=== PATIENT | male | born 1960 | race Caucasian/White ===

== ENCOUNTER 2018-03-29 17:00 | Inpatient (IN) | payer BC, OTHER ==
--- NOTE | 2018-03-29 17:45 | ED ---
Chest Pain HPI - General Chief Complaint: Chest Pain Stated Complaint: Chest pain/dizziness Time Seen by Provider: 03/29/18 17:27 Source: patient Mode of arrival: ambulatory Limitations: no limitations - History of Present Illness Initial Comments: 58-year-old male with past medical history of hyperlipidemia, thyroid disorder and sarcoidosis presenting today for chief complaint of dizziness/nausea x 2hours ago. Patient states that 3:45 PM this afternoon he was in his car listening to a conference call when he began to feel dizzy as if the room is spinning and had nausea. Patient took a Tums at this time, he states he then had one episode of emesis. Denies hematemesis. Patient denies any chest pain, upper extremity paresthesias, jaw pain, shoulder pain, headache, muscle weakness , sensation deficits, recent breath, dyspnea on exertion, orthopnea or lower extremity swelling. Patient states that he does have what feels like left lower lung "congestion" he denies this being the pain he states is more discomfort and this has been ongoing for the past week. He states he has had congestion, and postnasal drip-which she attributed to the symptoms. Patient denies fever chills or night sweats abdominal pain, or back pain. Patient denies syncope or presyncope. Remainder of our was negative. Upon arrival patient spell signs within normal limits, patient is well appearing. Nondiaphoretic, no signs of respiratory distress. - Related Data Home Medications Medication Instructions Recorded Confirmed Levothyroxine Sodium [Synthroid] 88 mcg PO DAILY 03/29/18 03/29/18 Omeprazole 20 mg PO MOWEFR 03/29/18 03/29/18 Previous Rx's Medication Instructions Recorded Meclizine [Antivert] 25 mg PO BID #30 tab 03/30/18 Allergies Allergy/AdvReac Type Severity Reaction Status Date / Time amoxicillin AdvReac Nausea & Verified 03/29/18 18:34 Vomiting Review of Systems ROS Statement: Those systems with pertinent positive or pertinent negative responses have been documented in the HPI. ROS Other: All systems not noted in ROS Statement are negative. Constitutional: Denies: fever, chills, night sweats ENT: Denies: ear pain, throat pain Respiratory: Reports: cough (on off). Denies: dyspnea Cardiovascular: Reports: chest pain ("left lower lung congestion"). Denies: palpitations, dyspnea on exertion, orthopnea, edema Gastrointestinal: Reports: nausea, vomiting (x1). Denies: abdominal pain, diarrhea, constipation, hematemesis, melena, hematochezia Genitourinary: Denies: urgency, frequency, hematuria, discharge Musculoskeletal: Denies: back pain Skin: Denies: rash, lesions Neurological: Reports: vertigo. Denies: headache, weakness, numbness, paresthesias, confusion, abnormal gait EKG Findings - EKG Comments: EKG Findings:: Ventricular rate 83 bpm, SD interval 148 ms, QRS duration 84 ms, QT/QTC 370/434 ms, this appears to sinus rhythm with possible 2nd degree type 2 block, noted premature supraventricular complexes. Nonspecific ST abnormalities. No ST elevation. Interpretted by myself and Dr. Gentile Past Medical History Past Medical History: Thyroid Disorder History of Any Multi-Drug Resistant Organisms: None Reported Past Surgical History: No Surgical Hx Reported Past Psychological History: No Psychological Hx Reported Smoking Status: Never smoker Past Alcohol Use History: None Reported Past Drug Use History: None Reported - Past Family History Mother Additional Family Medical History / Comment(s): brain calcification Father Family Medical History: Cancer Additional Family Medical History / Comment(s): from colon cancer 2017 General Exam - General Exam Comments Initial Comments: General: The patient is awake and alert, in no distress, and does not appear acutely ill. Eye: +3 pupils are equal, round and reactive to light, extra-ocular movements are intact. No nystagmus. There is normal conjunctiva bilaterally. No signs of icterus. Ears, nose, mouth and throat: There are moist mucous membranes and no oral lesions. Neck: The neck is supple, there is no tenderness or JVD. No carotid artery bruits Cardiovascular: There is a regular rate and rhythm. No murmur, rub or gallop is appreciated. Respiratory: Lungs are clear to auscultation, respirations are non-labored, breath sounds are equal. No wheezes, stridor, rales, or rhonchi. Gastrointestinal: No noted diaphoresis, jaundice, pallor, protecting postures or squirming. Symmetrical pigmentation of abdomen without signs of inflammation, [scars], or striae. Umbilicus mildline, inverted without swelling. No dilated veins. Abdomen contour obese, no noted abdominal distention. No visible masses. No peristalsis, aortic pulsations, or ventral hernia. Bowel sounds audible in all 4 quadrants, unremarkable. No friction rubs or venous hums. No epigastic, hepatic or abdominal bruits. No tenderness to light or deep palpation. Liver edge, not palpable. Spleen edge, right and left kidney not palpable. Superior bladder margin non-tender. Musculoskeletal: Normal ROM, no tenderness. Strength 5/5. Sensation intact. Pulses equal bilaterally 2+. Neurological: A&O x 3. CN II-XII intact, There are no obvious motor or sensory deficits. Coordination appears grossly intact. Speech is normal. Skin: Skin is warm and dry and no rashes or lesions are noted. No lower extremity edema Psychiatric: Cooperative, appropriate mood & affect, normal judgment. Limitations: no limitations Course Vital Signs 03/29/18 03/29/18 03/29/18 17:09 19:15 21:08 Temperature 97.8 F 97.8 F Pulse Rate 82 85 76 Pulse Rate [ Pulse Oximetery ] Respiratory 20 18 18 Rate Blood Pressure 134/84 121/82 122/76 Blood Pressure [Right Arm] O2 Sat by Pulse 99 97 96 Oximetry 03/29/18 03/30/18 03/30/18 22:51 01:15 04:00 Temperature 97.9 F 97.9 F Pulse Rate 66 70 Pulse Rate [ 73 Pulse Oximetery ] Respiratory 18 18 18 Rate Blood Pressure 114/72 106/69 Blood Pressure 130/85 [Right Arm] O2 Sat by Pulse 97 96 94 L Oximetry 03/30/18 03/30/18 08:00 12:00 Temperature 98.7 F 98.3 F Pulse Rate Pulse Rate [ 87 96 Pulse Oximetery ] Respiratory 18 18 Rate Blood Pressure Blood Pressure 112/75 111/72 [Right Arm] O2 Sat by Pulse 93 L 96 Oximetry Chest Pain MDM - MDM Pt VS stable on arrival, no signs of acute distress. EKG revealed findings concerning for Mobitz 2. Patient placed on telemetry. Laboratory findings unremarkable. Troponin negative. Chest x-ray negative. Will repeat troponin. Pt remains asymptomatic upon multiple reevaluations. Pt admitted for continuous telemetry and serial troponins. Cardiology on consults. Dr. Perry accepted admission. Pt resumed on home medications. Pt dispositioned with Dr. Gentile who agreed with impression and plan. Disposition Clinical Impression: Mobitz type 2 second degree AV block, Dizziness Disposition: ADMITTED IP TO THIS HOSP Condition: Fair Is patient prescribed a controlled substance at d/c from ED?: No Decision to Admit Reason: Admit from EC Decision Date: 03/29/18 Decision Time: 23:35
[2018-03-29 18:15] LABS: Basophils % (A) 0 %; Eosinophils # (A) 0.2 k/uL (0-0.7); Eosinophils % (A) 2 %; HCT 45.4 % (39.0-53.0); HGB 15.9 gm/dL (13.0-17.5); Lymphocytes # (A) 0.9 k/uL (1.0-4.8); Lymphocytes % (A) 9 %; MCH 32.3 pg (25.0-35.0); MCHC 35.1 g/dL (31.0-37.0); MCV 92.1 fL (80.0-100.0); Mean Platelet Volume 6.6; Monocytes # (A) 0.7 k/uL (0-1.0); Monocytes % (A) 7 %; Neutrophils % (A) 80 %; Platelet Count 231 k/uL (150-450); RBC 4.92 m/uL (4.30-5.90); RDW 12.4 % (11.5-15.5); WBC 9.9 k/uL (3.8-10.6)
[2018-03-29 18:27] LABS: ALT 31 U/L (21-72); AST 27 U/L (17-59); Albumin 4.2 g/dL (3.5-5.0); Alkaline Phosphatase 65 U/L (38-126); Anion Gap 6 mmol/L; Blood Urea Nitrogen 19 mg/dL (9-20); Calcium 9.4 mg/dL (8.4-10.2); Carbon Dioxide 29 mmol/L (22-30); Chloride 104 mmol/L (98-107); Glucose 102 mg/dL (74-99); Potassium 4.4 mmol/L (3.5-5.1); Sodium 139 mmol/L (137-145); Total Bilirubin 0.4 mg/dL (0.2-1.3); Total Protein 7.2 g/dL (6.3-8.2)
[2018-03-29 18:31] LABS: Prothrombin Time 10.2 sec (9.0-12.0)
[2018-03-29 18:36] LABS: Partial Thromboplastin Time 20.8 sec (22.0-30.0)
[2018-03-29 18:46] LABS: Creatine Kinase 104 U/L (55-170)
[2018-03-29 18:59] LABS: Creatine Kinase MB 0.6 ng/mL (0.0-2.4); Troponin I <0.012 ng/mL (0.000-0.034)
[2018-03-29 19:16] VITALS: RESP 18
--- NOTE | 2018-03-29 19:37 | XR ---
EXAMINATION TYPE: XR chest 2V DATE OF EXAM: 03/29/2018 COMPARISON: NONE HISTORY: Chest pain TECHNIQUE: Frontal and lateral views of the chest are obtained. FINDINGS: Heart and mediastinum are normal. Lungs are clear. Diaphragm is normal. There are chest le ads. There is minor spurring in the thoracic spine. There is no evidence of pleural effusion. There a re no hilar masses. IMPRESSION: No cardiopulmonary disease. Normal heart.
[2018-03-29] MEDS ORDERED: ACETAMINOPHEN TAB 325 MG TAB PO PRN (19:41)
[2018-03-29] MEDS ORDERED: NALOXONE 0.4 MG/ML 1 ML VIAL IV PRN (19:41)
[2018-03-29] MEDS ORDERED: NITROGLYCERIN SL TABS 0.4 MG TAB SUBLINGUAL PRN (19:44)
[2018-03-29] MEDS ORDERED: SODIUM CHLORIDE 0.9% 1,000 ML IV SCH (19:45)
[2018-03-29 23:56] LABS: Creatine Kinase 96 U/L (55-170)
[2018-03-30 00:09] LABS: Creatine Kinase MB 0.6 ng/mL (0.0-2.4); Troponin I <0.012 ng/mL (0.000-0.034)
[2018-03-30] MEDS ORDERED: LEVOTHYROXINE 88 MCG TAB PO SCH (06:30)
[2018-03-30 06:46] LABS: Cholesterol 200 mg/dL (<200); HDL Cholesterol 50 mg/dL (40-60); LDL Cholesterol,Calculated 129 mg/dL (0-99); Triglycerides 106 mg/dL (<150)
[2018-03-30 06:47] LABS: Creatine Kinase 92 U/L (55-170)
[2018-03-30 07:00] LABS: Creatine Kinase MB 0.6 ng/mL (0.0-2.4); Troponin I <0.012 ng/mL (0.000-0.034)
[2018-03-30] MEDS ORDERED: ASPIRIN 325 MG TAB PO SCH (09:00)
[2018-03-30] MEDS ORDERED: MECLIZINE 25 MG TAB PO PRN (12:10)
[2018-03-30] MEDS ORDERED: MECLIZINE 25 MG TAB PO STA (12:12)
[2018-03-30 12:37] VITALS: BP 111/72; PULSE 96; TEMP 98.3
--- NOTE | 2018-03-30 14:37 | P.CRDCN ---
History of Present Illness Consult date: 03/30/18 Requesting physician: Simin Perry Reason for Consult (text): Dizziness Chief complaint: Dizziness History of present illness: This is a pleasant 58-year-old gentleman with no prior documented history of hypertension, nondiabetic, no hyperlipidemia, he is a nonsmoker, he does not drink significant amounts of caffeine, and has a history of hypothyroidism he presents to the emergency room today with symptoms of dizziness. According to the patient he was sitting in his car, listening to a weapon are when all of a sudden he became extremely dizzy. He states that he felt like everything around him was spinning, felt as though he may pass out. He denies ever having an episode similar to this in the past. Patient does state that for the past one week he has felt as though he may be developing an upper respiratory infection. Chest x-ray on arrival here did not reveal any acute cardiopulmonary disease. His initial EKG performed here shows a normal sinus rhythm with occasional PACs, left anterior fascicular block. though the EKG interpretation by the machine suggested second-degree AV block. At the time of my examination he continues to be in a sinus rhythm with occasional to frequent PACs. any heart block. Blood pressure 110/70 with a heart rate in the 80s to 90s, 96% on room air. Blood cell count 9.9, hemoglobin 15.9, platelet count 231. Sodium 139, potassium 4.4, BUN 19, creatinine 0.9. Troponins are negative 3. Cholesterol 200, LDL 129, HDL 50 and triglycerides 106. The patient has been seen by primary care doctor, Dr. Bah who recommended the patient be initiated on an antihistamine along with Antivert 25 mg one tablet by mouth twice a day. At the time of my examination in the emergency room he denies any further episodes of dizziness, alert and oriented 3, no palpitations. He does state that he was told in the past he may have mitral valve prolapse, approximately 20 years ago he had a monitor placed and an echo performed which did not reveal anything significant according to the patient. Past Medical History Past Medical History: Thyroid Disorder Additional Past Medical History / Comment(s): sarcoidosis,shingles approx 2009 History of Any Multi-Drug Resistant Organisms: None Reported Past Surgical History: No Surgical Hx Reported Additional Past Surgical History / Comment(s): mediastinoscopy, egd, colonoscopy Past Anesthesia/Blood Transfusion Reactions: No Reported Reaction Past Psychological History: No Psychological Hx Reported Smoking Status: Never smoker Past Alcohol Use History: None Reported Past Drug Use History: None Reported - Past Family History Mother Additional Family Medical History / Comment(s): brain calcification Father Family Medical History: Cancer Additional Family Medical History / Comment(s): from colon cancer 2016 Medications and Allergies Home Medications Medication Instructions Recorded Confirmed Type Levothyroxine Sodium [Synthroid] 88 mcg PO DAILY 03/29/18 03/29/18 History Omeprazole 20 mg PO MOWEFR 03/29/18 03/29/18 History Meclizine [Antivert] 25 mg PO BID #30 tab 03/30/18 Rx Allergies Allergy/AdvReac Type Severity Reaction Status Date / Time amoxicillin AdvReac Nausea & Verified 03/29/18 18:34 Vomiting Physical Exam Vitals: Vital Signs Temp Pulse Pulse Resp BP BP Pulse Ox 03/30/18 12:00 98.3 F 96 18 111/72 96 03/30/18 08:00 98.7 F 87 18 112/75 93 L 03/30/18 04:00 97.9 F 73 18 130/85 94 L 03/30/18 01:15 70 18 106/69 96 03/29/18 22:51 97.9 F 66 18 114/72 97 03/29/18 21:08 97.8 F 76 18 122/76 96 03/29/18 19:15 85 18 121/82 97 03/29/18 17:09 97.8 F 82 20 134/84 99 Intake and Output 03/29/18 03/30/18 03/30/18 22:59 06:59 14:59 Intake Total 240 Output Total 3 Balance -3 240 Intake: Oral 240 Output: Urine 3 Other: Voiding Method Toilet Toilet # Voids 1 Weight 83.915 kg PHYSICAL EXAMINATION: GENERAL: 58-year-old gentleman in no acute distress at the time of my examination HEENT: Head is atraumatic, normocephalic. Pupils equal, round. Sclera anicteric. Conjunctiva are clear. Mucous membranes of the mouth are moist. Neck is supple. There is no elevated jugular venous pressure. No carotid bruit is heard. HEART EXAMINATION: Heart S1, S2 normal. No murmur or gallop heard. CHEST EXAMINATION: Lungs are clear to auscultation and precussion. No chest wall tenderness is noted on palpation or with deep breathing. ABDOMEN: Soft, nontender. Bowel sounds are heard. No organomegaly noted. EXTREMITIES: 2+ peripheral pulses with no evidence of peripheral edema and no calf tenderness noted. NEUROLOGIC patient is awake, alert and oriented 3 . . Results 03/29/18 18:03 03/29/18 18:03 Cardiac Enzymes 03/29/18 03/29/18 03/29/18 Range/Units 18:03 18:03 23:20 AST 27 (17-59) U/L CK-MB (CK-2) 0.6 0.6 (0.0-2.4) ng/mL Troponin I <0.012 <0.012 (0.000-0.034) ng/mL 03/30/18 Range/Units 05:51 AST (17-59) U/L CK-MB (CK-2) 0.6 (0.0-2.4) ng/mL Troponin I <0.012 (0.000-0.034) ng/mL Coagulation 03/29/18 Range/Units 18:03 PT 10.2 (9.0-12.0) sec APTT 20.8 L (22.0-30.0) sec Lipids 03/30/18 Range/Units 05:51 Triglycerides 106 (<150) mg/dL Cholesterol 200 H (<200) mg/dL HDL Cholesterol 50 (40-60) mg/dL CBC 03/29/18 Range/Units 18:03 WBC 9.9 (3.8-10.6) k/uL RBC 4.92 (4.30-5.90) m/uL Hgb 15.9 (13.0-17.5) gm/dL Hct 45.4 (39.0-53.0) % Plt Count 231 (150-450) k/uL Comprehensive Metabolic Panel 03/29/18 Range/Units 18:03 Sodium 139 (137-145) mmol/L Potassium 4.4 (3.5-5.1) mmol/L Chloride 104 (98-107) mmol/L Carbon Dioxide 29 (22-30) mmol/L BUN 19 (9-20) mg/dL Creatinine 0.99 (0.66-1.25) mg/dL Glucose 102 H (74-99) mg/dL Calcium 9.4 (8.4-10.2) mg/dL AST 27 (17-59) U/L ALT 31 (21-72) U/L Alkaline Phosphatase 65 (38-126) U/L Total Protein 7.2 (6.3-8.2) g/dL Albumin 4.2 (3.5-5.0) g/dL Current Medications Generic Name Dose Route Start Last Admin Trade Name Gonzalo PRN Reason Stop Dose Admin Acetaminophen 650 mg 03/29/18 19:41 Tylenol Tab PO Q4HR PRN Fever and/or Mild Pain Aspirin 325 mg 03/30/18 09:00 03/30/18 08:20 Aspirin PO 325 mg DAILY KEATON Administration Sodium Chloride 1,000 mls @ 50 mls/hr 03/29/18 19:45 03/29/18 22:52 Saline 0.9% IV 50 mls/hr .Q20H KEATON Administration Levothyroxine Sodium 88 mcg 03/30/18 06:30 03/30/18 10:58 Synthroid PO 88 mcg DAILY@0630 KEATON Administration Meclizine HCl 25 mg 03/30/18 12:10 Antivert PO TID PRN Vertigo Naloxone HCl 0.2 mg 03/29/18 19:41 Narcan IV Q2M PRN Opioid Reversal Nitroglycerin 0.4 mg 03/29/18 19:44 Nitrostat SUBLINGUAL Q5M PRN Chest Pain Pantoprazole Sodium 40 mg 03/31/18 07:30 Protonix PO MOWEFR KEATON Intake and Output 03/29/18 03/30/18 03/30/18 22:59 06:59 14:59 Intake Total 240 Output Total 3 Balance -3 240 Intake: Oral 240 Output: Urine 3 Other: Voiding Method Toilet Toilet # Voids 1 Weight 83.915 kg 03/29/18 18:03 03/29/18 18:03 EKG Interpretations (text) EKG shows a normal sinus rhythm with PACs. Assessment and Plan Plan: Assessment and plan #1 symptoms of dizziness, near syncope. Possible vertigo. EKG shows normal sinus rhythm with occasional PACs #2 hypothyroidism #3 sarcoidosis Plan Echocardiogram with Doppler study has been performed, this will be reviewed by Dr. Gardiner. Patient has also been recommended by his primary doctor to be started on an antihistamine along with Antivert for possible vertigo. We would recommend the patient aware a 24-hour Holter monitor, he may be able to be discharged from the emergency room and a follow-up appointment made with Dr. Gardiner in the office post discharge. DNP note has been reviewed, I agree with a documented findings and plan of care. Patient was seen and examined.
[2018-03-30 14:40] LABS: Hemoglobin A1C 5.4 % (4.0-6.0)
--- NOTE | 2018-03-30 15:08 | P.HPIM ---
History of Present Illness H&P Date: 03/30/18 Chief Complaint: Dizziness HISTORY AND PHYSICAL AND DISCHARGE SUMMARY: This is a 58-year-old male patient of Dr. Haywood with past medical history of gastroesophageal reflux disease, hypothyroidism, hyperlipidemia, sarcoidosis. Patient states that he was sitting in his car outside [facility] and had sudden onset of dizziness and everything was spinning. This sensation lasted for about 20-30 minutes. He denies any loss of consciousness. He states he was scheduled to go meet his mother and take her to dinner at [place] and ended up driving himself there but when he got out of the vehicle he did not feel that he should be there in case he was sick. When he got out of the vehicle he did have a small amount of emesis and then he called his . She states he was doing a lot of belching at the time and he did take a Tums. He complains of occasional chest pressure that comes and goes that she gets better when he is at rest. He denies having any shortness of breath or sweats. No vision changes. No numbness or tingling to his arms or legs. He denies having any palpitations. He does complain of postnasal drip and nasal congestion but has not been feeling sick prior to this episode. He states he does have frequent sinus headaches. He has never had A. fib or ME in the past. He was told that he had mitral valve prolapse many years ago and was tested but there was no concern or no treatment. Patient was placed as hold for Cardiac Stepdown. His vital signs were stable, pulse ox 99% on room air. Troponin was negative on 3 draws. Triglycerides 106, cholesterol 200, LDL 129 and HDL 50. Chest x-ray shows no acute process. EKG was was read as second- degree AV block Mobitz 2. Upon review of the EKG it is in normal sinus rhythm with occasional PACs. Patient was seen by cardiology with recommendations for a 24-hour Holter monitor and discharge from the emergency center with follow-up with Dr. Gardiner in the office. Echocardiogram has been done and report is pending at the time of this dictation. Patient will be discharged home in stable condition. He has been started on meclizine for treatment of dizziness. Discharge Medication List Levothyroxine Sodium [Synthroid] 88 mcg PO DAILY 03/29/18 [History] Omeprazole 20 mg PO MOWEFR 03/29/18 [History] Meclizine [Antivert] 25 mg PO BID #30 tab 03/30/18 [Rx] Review of Systems All systems: negative Constitutional: Denies chills, Denies chronic headaches, Denies chronic pain, Denies fatigue, Denies fever, Denies lethargy, Denies malaise, Denies poor appetite, Denies weakness, Denies weight loss Eyes: denies blurred vision, denies pain Ears, nose, mouth and throat: Reports nasal congestion, Reports vertigo, Denies dysphagia, Denies headache, Denies hoarseness, Denies sore throat Cardiovascular: Denies chest pain, Denies shortness of breath Respiratory: Denies cough, Denies dyspnea, Denies excessive sputum, Denies hemoptysis, Denies home oxygen, Denies wheezing Gastrointestinal: Denies abdominal pain, Denies diarrhea, Denies nausea, Denies vomiting Genitourinary: Denies dysuria, Denies urinary frequency, Denies urinary hesitancy, Denies urinary retention Musculoskeletal: Denies frequent falls, Denies gait dysfunction, Denies leg numbness/tingling, Denies muscle weakness, Denies myalgias Integumentary: Denies pruritus, Denies rash, Denies wounds Neurological: Reports headaches, Denies change in mentation, Denies change in speech, Denies confusion, Denies gait dysfunction, Denies head injury, Denies numbness, Denies seizures, Denies weakness Psychiatric: Denies anxiety, Denies depression Endocrine: Denies fatigue, Denies weight change Past Medical History Past Medical History: Thyroid Disorder Additional Past Medical History / Comment(s): sarcoidosis,shingles approx 2010 History of Any Multi-Drug Resistant Organisms: None Reported Past Surgical History: No Surgical Hx Reported Additional Past Surgical History / Comment(s): mediastinoscopy, egd, colonoscopy Past Anesthesia/Blood Transfusion Reactions: No Reported Reaction Past Psychological History: No Psychological Hx Reported Smoking Status: Never smoker Past Alcohol Use History: None Reported Additional Past Alcohol Use History / Comment(s): Patient has been a lifelong nonsmoker, no illicit drug use, no alcohol use. He lives at home with his . Past Drug Use History: None Reported - Past Family History Mother Additional Family Medical History / Comment(s): Patient's mother has a calcified tumor in her brain that has been there for many years. Patient denies any history of coronary artery disease or diabetes in the family. Father Family Medical History: Cancer Additional Family Medical History / Comment(s): Father at age 90 from colon cancer 2016 Medications and Allergies Home Medications Medication Instructions Recorded Confirmed Type Levothyroxine Sodium [Synthroid] 88 mcg PO DAILY 03/29/18 03/29/18 History Omeprazole 20 mg PO MOWEFR 03/29/18 03/29/18 History Meclizine [Antivert] 25 mg PO BID #30 tab 03/30/18 Rx Allergies Allergy/AdvReac Type Severity Reaction Status Date / Time amoxicillin AdvReac Nausea & Verified 03/29/18 18:34 Vomiting Physical Exam Vitals: Vital Signs Temp Pulse Pulse Resp BP BP Pulse Ox 03/30/18 08:00 98.7 F 87 18 112/75 93 L 03/30/18 04:00 97.9 F 73 18 130/85 94 L 03/30/18 01:15 70 18 106/69 96 03/29/18 22:51 97.9 F 66 18 114/72 97 03/29/18 21:08 97.8 F 76 18 122/76 96 03/29/18 19:15 85 18 121/82 97 03/29/18 17:09 97.8 F 82 20 134/84 99 Intake and Output 03/29/18 03/30/18 03/30/18 22:59 06:59 14:59 Output Total 3 Balance -3 Output: Urine 3 Other: Voiding Method Toilet Toilet Weight 83.915 kg Gen: This is a 58-year-old male. Patient is on the ER stretcher and appears to be comfortable and in no acute distress. HEENT: Head is atraumatic, normocephalic. Pupils equal, round. Sclerae is anicteric. There is significant earwax in the left ear otherwise no abnormalities in the ear canal bilaterally. NECK: Supple. No JVD. No lymphadenopathy. No thyromegaly. LUNGS: Clear to auscultation. No wheezes or rhonchi. No intercostal retractions. HEART: Regular rate and rhythm. No murmur. ABDOMEN: Soft. Bowel sounds are present. No masses. No tenderness. EXTREMITIES: No pedal edema. No calf tenderness. NEUROLOGICAL: Patient is awake, alert and oriented x3. Cranial nerves 2 through 12 are grossly intact. Results CBC & Chem 7: 03/29/18 18:03 03/29/18 18:03 Labs: Abnormal Lab Results - Last 24 Hours (Table) 03/29/18 03/29/18 03/29/18 Range/Units 18:03 18:03 18:03 Neutrophils # 8.0 H (1.3-7.7) k/uL Lymphocytes # 0.9 L (1.0-4.8) k/uL APTT 20.8 L (22.0-30.0) sec Glucose 102 H (74-99) mg/dL Cholesterol (<200) mg/dL LDL Cholesterol, Calc (0-99) mg/dL 03/30/18 Range/Units 05:51 Neutrophils # (1.3-7.7) k/uL Lymphocytes # (1.0-4.8) k/uL APTT (22.0-30.0) sec Glucose (74-99) mg/dL Cholesterol 200 H (<200) mg/dL LDL Cholesterol, Calc 129 H (0-99) mg/dL Thrombosis Risk Factor Assmnt - Choose All That Apply Any of the Below Risk Factors Present?: Yes Each Factor Represents 1 point: Age 41-60 years, Obesity (BMI >25) Other Risk Factors: No Other congenital or acquired thrombophilia - If yes, enter type in comment: No Thrombosis Risk Factor Assessment Total Risk Factor Score: 2 Thrombosis Risk Factor Assessment Level: Low Risk Assessment and Plan Plan: 1. Dizziness most likely secondary to vertigo secondary to recent sinus drainage and wax more so in the left ear. Patient started on meclizine and instructed to follow-up with his primary care for earwax removal. 2. Hypothyroidism. Continue levothyroxine 88 g daily. TSH and free T4 added. 3. Gastroesophageal reflux disease. Protonix. 4. History of sarcoidosis. 5. Complains of occasional chest pain. Cardiology has ordered a Holter monitor. Patient will be admitted to the hospital for a minimum of 1 night stay. Discharge plan: Return home Impression and plan of care have been directed as dictated by the signing physician. Jolly Stafford nurse practitioner acting as scribe for signing physician.
--- NOTE | 2018-03-30 18:09 | ECHOF ---
Referral Reason:dizziness MEASUREMENTS -------- HEIGHT: 170.2 cm WEIGHT: 83.9 kg BP: RVIDd: 2.5 cm (< 3.3) IVSd: 1.0 cm (0.6 - 1.1) LVIDd: 4.1 cm (3.9 - 5.3) LVPWd: 1.1 cm (0.6 - 1.1) IVSs: 1.3 cm LVIDs: 2.8 cm LVPWs: 1.4 cm LAESV Index (A-L): 27.58 ml/m Ao Diam: 3.6 cm (2.0 - 3.7) AV Cusp: 1.9 cm (1.5 - 2.6) LA Diam: 2.9 cm (2.7 - 3.8) EPSS: 0.4 cm MV E Guillermo: 0.68 m/s MV DecT: 221 ms MV A Guillermo: 0.70 m/s MV E/A Ratio: 0.97 RAP: 5.00 mmHg RVSP: 9.99 mmHg MV EF SLOPE: 99.42 mm/s (70 - 150) MV EXCURSION: 1.70 cm (> 18.000) FINDINGS -------- Sinus rhythm. This was a technically adequate study. The left ventricular size is normal. Left ventricular wall thickness is normal. Overall left vent ricular systolic function is normal with, an EF between 55 - 60 %. The right ventricle is normal in size and function. Normal LA size by volume 22+/-6 ml/m2. The right atrium is normal in size. The aortic valve is trileaflet, and appears structurally normal. No aortic stenosis or regurgitation. The mitral valve is normal. Mild mitral regurgitation is present. Trace tricuspid regurgitation present. Right ventricular systolic pressure is normal at < 35 mmHg. The right ventricular systolic pressure, as measured by Doppler, is 9.99mmHg. The pulmonic valve was not well visualized. There is no pulmonic regurgitation present. The aortic root is mildy dilated, up to 4.2 cm at the sinus of valsalva. IVC Not well visulized. There is no pericardial effusion. CONCLUSIONS -------- 1. Sinus rhythm. 2. This was a technically adequate study. 3. The left ventricular size is normal. 4. Left ventricular wall thickness is normal. 5. Overall left ventricular systolic function is normal with, an EF between 55 - 60 %. 6. Normal LA size by volume 22+/-6 ml/m2. 7. The aortic valve is trileaflet, and appears structurally normal. No aortic stenosis or regurgitati on. 8. Mild mitral regurgitation is present. 9. Trace tricuspid regurgitation present. 10. Right ventricular systolic pressure is normal at < 35 mmHg. 11. The pulmonic valve was not well visualized. 12. There is no pulmonic regurgitation present. 13. The aortic root is mildy dilated, up to 4.2 cm at the sinus of valsalva. 14. IVC Not well visulized. 15. There is no pericardial effusion. BOOT TURNER: Demetri Mora RDCS
[2018-03-31] MEDS ORDERED: PANTOPRAZOLE 40 MG TABLET PO SCH (07:30)
== END 2018-03-30 15:33 | disposition home or self-care (01) | DRG 149 ==
LOC: EC 17:00 → 3SCARD 19:23
PROVIDERS: ADMIT Internal Medicine; ATTEND Internal Medicine
DX: R42 Dizziness and giddiness (principal); D86.9 Sarcoidosis, unspecified; E03.9 Hypothyroidism, unspecified; E78.5 Hyperlipidemia, unspecified; I34.1 Nonrheumatic mitral (valve) prolapse; I49.1 Atrial premature depolarization; K21.9 Gastro-esophageal reflux disease without esophagitis; Z79.890 Hormone replacement therapy; H61.22 Impacted cerumen, left ear; Z80.0 Family history of malignant neoplasm of digestive organs; Z82.0 Family history of epilepsy and other diseases of the nervous system; R07.9 Chest pain, unspecified; Z88.0 Allergy status to penicillin
CPT/HCPCS: 36415; 71046; 80053; 80061; 82550; 82553; 83036; 83735; 84443; 84484; 85025; 85610; 85730; 93005; 93306; 99285

== ENCOUNTER → 2018-05-04 | Outpatient (CLI) | payer OTHER ==
--- NOTE | 2018-05-04 16:44 | CT ---
EXAMINATION TYPE: CT sinus wo con DATE OF EXAM: 05/04/2018 COMPARISON: None HISTORY: Vertigo and chronic sinusitis. CT DLP: 495.[address] of the paranasal sinuses was performed in the axial and coronal planes. Bone and soft tissue settings are submitted. The paranasal sinuses demonstrate normal aeration and development. The paranasal sinuses are free of mucosal thickening or air fluid level. The osteal meatal units are patent bilaterally. The nasal septum is midline. No bony destructive changes are seen within the field of view. IMPRESSION: Normal unenhanced CT of the paranasal sinuses.
--- NOTE | 2018-05-05 07:07 | US ---
EXAMINATION TYPE: US carotid duplex BILAT DATE OF EXAM: 05/04/2018 COMPARISON: CT Brain CLINICAL HISTORY: J32.9 Chronic Sinusitis, R42 Vertigo,R07.89 Chest. EXAM MEASUREMENTS: RIGHT: Peak Systolic Velocity (PSV) cm/sec ----- Right CCA: 66.4 ----- Right ICA: 65.1 ----- Right ECA: 71.2 ICA/CCA ratio: 1.0 RIGHT: End Diastole cm/sec ----- Right CCA: 22.2 ----- Right ICA: 31.1 ----- Right ECA: 20.6 LEFT: Peak Systolic Velocity (PSV) cm/sec ----- Left CCA: 51.9 ----- Left ICA: 49.6 ----- Left ECA: 66.9 ICA/CCA ratio: 1.0 LEFT: End Diastole cm/sec ----- Left CCA: 18.6 ----- Left ICA: 23.2 ----- Left ECA: 17.1 VERTEBRALS (direction of flow): Right Vertebral: Antegrade Left Vertebral: Antegrade Rhythm: Normal Very mild intimal wall thickening is noted at bilateral carotid bifurcation and PSV is wnl bilaterall y. IMPRESSION: Very mild intimal wall thickening is noted at bilateral carotid bifurcation and PSV is wn l bilaterally. Criteria for Assigning % of Stenosis / Diameter reduction (Estimation based on the indirect measurements of the internal carotid artery velocities (ICA PSV). 1. Normal (no stenosis)=ICA PSV < 125 cm/s: ratio < 2.0: ICA EDV<40 cm/s. 2. Less than 50% stenosis=ICA PSV < 125 cm/s: ratio < 2.0: ICA EDV<40 cm/s. 3. 50 to 69% stenosis=ICA PSV of 125 to 230 cm/s: ration 2.0 ? 4.0: ICA EDV 40-100 cm/s. 4. Greater than 70% stenosis to near occlusion= ICA PSV > 230 cm/s: ratio > 4.0: ICA EDV > 100 cm/s. 5. Near occlusion= ICA PSV velocities may be low or undetectable: variable ratio and ICA EDV. 6. Total occlusion=unable to detect flow.
--- NOTE | 2018-05-05 08:59 | CT ---
EXAMINATION TYPE: CT brain wo/w con DATE OF EXAM: 05/04/2018 COMPARISON: None INDICATION: Vertigo and chronic sinusitis. DLP: 2114 mGycm, Automated exposure control for dose reduction was used. CONTRAST: 100 mL Isovue-300 CT of the brain is performed utilizing 3 mm thick sections through the posterior fossa and 3 mm thick sections through the remaining calvarium. Study is performed within 24 hours of arrival to the hosp [facility]. Pre and postcontrast imaging is performed. No abnormal hyperdensity is present to suggest an acute intracranial hemorrhage. No mass lesion is evident. No acute infarcts are evident. There appears to be some subtle periventricular white matter changes w hich may be slightly greater in the occipital region. Consider the possibility of effects from hypert ension. No suspicious areas for enhancement are evident. Ventricles and sulci are appropriate for the patient age. Paranasal sinuses and mastoid air cells within the [id number] are clear. IMPRESSIONS: 1. There may be some subtle white matter changes adjacent to the occipital horns of the lateral dave tricles in the occipital regions bilaterally. This nonspecific but can be related to microvascular is chemic change.
== END | disposition home or self-care (01) ==
LOC: RADUSMAIN 15:48
PROVIDERS: ATTEND Family Medicine
DX: R42 Dizziness and giddiness (principal); J32.9 Chronic sinusitis, unspecified; R07.89 Other chest pain
CPT/HCPCS: 93880; 70470; 70486; Q9967

== ENCOUNTER → 2021-01-30 | Outpatient (CLI) | payer BC ==
--- NOTE | 2021-01-30 12:44 | XR ---
EXAMINATION TYPE: XR knee complete bilateral DATE OF EXAM: 01/30/2021 COMPARISON: None HISTORY: Pain greater on right TECHNIQUE: Bilateral knee is examined in 3 projections each FINDINGS: Left knee: Joint spaces are preserved. No joint effusion is evident. No acute fracture or dislocation is evident. Small anterior tibial spurring may be present from old Baldomero-Schlatter's disease. Right knee: Minimal narrowing of the medial compartment joint space is present. Remaining joint space s appear preserved. No joint effusion is evident. Some spurring in the anterior tibia could be relate d to prior [place] slaughters disease. Weightbearing images of the AP knees bilaterally were obtained without significant interval change. IMPRESSION: 1. No acute osseous abnormality bilateral knees. 2. Mild degenerative change medial compartment right knee
== END | disposition home or self-care (01) ==
LOC: RADXRMAIN 08:39
PROVIDERS: ATTEND Family Medicine
DX: M17.11 Unilateral primary osteoarthritis, right knee (principal); M76.892 Other specified enthesopathies of left lower limb, excluding foot

== ENCOUNTER 2022-05-07 09:46 | Day surgery (SDC) | payer BC ==
[~2022-05-07 09:46] MED LIST: LACTATED RINGERS 1,000 ML IV SCH; LIDOCAINE 1% (10MG/ML) FOR IV START INTRADERMA PRN
[2022-05-07 10:14] VITALS: TEMP 96.9
[2022-05-07] MEDS ORDERED: PROPOFOL 10 MG/ML 20 ML VIAL IV ONE (11:09)
[2022-05-07] MEDS ORDERED: LIDOCAINE 2% INJ 20 MG/ML (2 ML VIAL) ONE (11:09)
--- NOTE | 2022-05-07 11:26 | P.PCN ---
Date of Procedure: 05/07/22 Procedure(s) Performed: BRIEF HISTORY: Patient is a 62-year-old pleasant white male scheduled for an elective colonoscopy as a part of screening for colon cancer. His family history of colon cancer diagnosed in her father at age 90. PROCEDURE PERFORMED: Colonoscopy. PREOPERATIVE DIAGNOSIS: Screening for colon cancer/family history of colon cancer. IV sedation per Anesthesia. PROCEDURE: After informed consent was obtained, the patient, was brought into the endoscopy unit. IV sedation was administered by Anesthesia under continuous monitoring. Digital rectal examination was normal. Initially the Olympus CF-160 flexible video colonoscope was then inserted in the rectum, gradually advanced into the cecum without any difficulty. Careful examination was performed as the scope was gradually being withdrawn. Ileocecal valve and the appendiceal orifice were visualized and appeared normal. Prep was excellent. Mucosa of the cecum, ascending colon, transverse colon, descending colon, sigmoid colon, and rectum appeared normal. Scattered sigmoid diverticulosis. Retroflexion was performed in the rectum and all internal hemorrhoids were seen. The patient tolerated the procedure well. IMPRESSION: Normal-appearing colon from rectum to cecum with no evidence of colorectal neoplasia . Small internal hemorrhoids Scattered sigmoidal diverticulosis RECOMMENDATIONS: Findings of this examination were discussed with the patient as well as his family. He was advised to have a repeat screening colonoscopy every 5 years because of the family history of colon cancer.
[2022-05-07 11:33] VITALS: PULSE 82; RESP 16
[2022-05-07 11:55] VITALS: BP 120/76
== END 2022-05-07 12:18 | disposition home or self-care (01) ==
LOC: ORWHC2ENDO 09:46
PROVIDERS: ATTEND Internal Medicine Gastroenterology
DX: Z12.11 Encounter for screening for malignant neoplasm of colon (principal); K64.8 Other hemorrhoids; K57.30 Diverticulosis of large intestine without perforation or abscess without bleeding; E07.9 Disorder of thyroid, unspecified; K21.9 Gastro-esophageal reflux disease without esophagitis; Z88.0 Allergy status to penicillin; Z79.890 Hormone replacement therapy; Z80.0 Family history of malignant neoplasm of digestive organs; Z79.899 Other long term (current) drug therapy
CPT/HCPCS: 45378; J2704; J2001

== ENCOUNTER → 2022-05-14 | Outpatient (CLI) | payer BC ==
--- NOTE | 2022-05-16 23:27 | MR ---
EXAMINATION TYPE: MR iac wo/w con DATE OF EXAM: 05/14/2022 6:18 PM CLINICAL INDICATION:Male, 62 years old with history of H93.13 Tinnitus Bilateral; COMPARISON: CT 05/04/2018<' TECHNIQUE: Multi planar, multi sequence imaging was performed through the brain. Specialized thin s equences were obtained through the internal auditory canals. Pre-and post gadolinium sequences were obtained. MR contrast: IV Contrast: 7.5 cc Gadavist FINDINGS: Ventricular system dilation in proportion to cerebral atrophy or prominent on the left posterior late ral ventricle at the trigone. Scattered foci of high T2 signal intensity are seen within the perivent ricular white matter. Midline structures show no abnormality. Diffusion-weighted imaging shows no [place] dence of restricted diffusion. The susceptibility weighted images do not reveal any evidence for micr o-hemorrhage. The bone marrow signal is within normal limits. Paranasal sinuses and mastoid air cells: Mild scattered paranasal sinus disease. Visualized orbits: Orbital contents are intact. After administration of gadolinium, no abnormal enhancement is seen. The internal auditory canal sequences demonstrate no significant irregularity. The 7th cranial nerve s, 8 cranial nerves, and cerebellar pontine angles appear unremarkable. After the administration graeme olinium, no abnormal enhancement is seen within the internal auditory canals. IMPRESSION: 1. No evidence of intracranial mass nor acute/subacute CVA. 2. No evidence of internal auditory canal abnormality. 3. Minimal nonspecific white matter changes.
== END | disposition home or self-care (01) ==
LOC: RADMRIMAIN 17:37
PROVIDERS: ATTEND Otolaryngology
DX: R90.82 White matter disease, unspecified (principal); H93.13 Tinnitus, bilateral
CPT/HCPCS: 70553; A9585